=== PATIENT | female | born 1970 | race American Indian/Alaskan Native ===

== ENCOUNTER 2018-10-15 18:37 | Emergency (ER) | payer BC ==
[2018-10-15] MEDS ORDERED: IBUPROFEN PO ONE (19:37)
--- NOTE | 2018-10-15 20:27 | XRay Report ---
PROCEDURE: XR RIBS UNI W PA CHEST 3+V LT TECHNIQUE: PA view of the chest and 2 views of the bilateral ribs HISTORY: fall with rib pain bilaterally COMPARISONS: None . FINDINGS: There is no evidence for acute rib fracture or other bony pathologic abnormality in the bilateral rib s. On the chest film, the lungs are clear without evidence for infiltrate, effusion, or pneumothorax. Th e cardiomediastinal silhouette is normal . IMPRESSION: No acute abnormality in the bilateral ribs or chest. This document is electronically signed by Ashley Roach MD., Oct 15 2018 08:25:37 PM ET
--- NOTE | 2018-10-15 23:09 | Emergency Department Report ---
Blank Doc - Documentation Documentation: 48 y/o female comes in s/p fall off toilet and hit her left side of ribs this morning. LMP does not get.
[2018-10-15] MEDS ORDERED: ZOFRAN ODT PO ONE (23:43)
[2018-10-15] MEDS ORDERED: FLEXERIL PO ONE (23:43)
[2018-10-15] MEDS ORDERED: TORADOL IM ONE (23:43)
[2018-10-15] MEDS ORDERED: PERCOCET 5/325 PO ONE (23:43)
--- NOTE | 2018-10-15 23:55 | Emergency Department Report ---
ED Fall HPI - General Chief Complaint: Fall Stated Complaint: FALL INJURY/RIB PAIN Time Seen by Provider: 10/15/18 23:40 Source: patient Mode of arrival: Wheelchair - History of Present Illness Initial Comments: Patient is a 48-year-old Turk[place] female with a history of hypertension who presents to the ED, and the acute onset persistent severe left lateral chest wall and rib pain after she tripped and fell down, hitting her chest against the bathtub about 12 hours ago. Patient states that initially the pain was mild but subsequently the pain got worse in the last 6 hours. Patient states that the pain is worse with any movement, twisting, deep inhalation or palpation on the left lateral chest wall. Patient denies head or neck injury, back injury, abdominal pain, nausea, vomiting, dizziness, lightheadedness, syncope, headache, loss of consciousness or change in vision. MD Complaint: fall, other (left lateral chest wall and rib cage pain) -: Sudden, hour(s) (12) Time: 11:00 Fall From: standing, other (tripped and fell down hitting her left lateral chest wall against tub) When Fall Occurred: just prior to arrival, other (12 hours ago) Fall Witnessed: yes, by family Place Fall Occurred: home Loss of Consciousness: none Prolonged Down Time?: no Symptoms Prior to Fall: none, other (was sleep walking) Location: chest (left-lateral chest wall) Severity: severe Severity scale (0 -10): 7 Quality: sharp, stabbing Context: tripped/slipped Associated Symptoms: denies: headache, neck pain, numbness, weakness, chest paint, shortness of breath, abdominal pain, hematuria, unable to walk, lightheaded, vertigo, confusion - Related Data Previous Rx's Medication Instructions Recorded Last Taken Type Ketorolac [Toradol] 10 mg PO Q8H PRN #20 tablet 10/16/18 Unknown Rx tiZANidine [Zanaflex] 4 mg PO Q8H PRN #15 tablet 10/16/18 Unknown Rx traMADol [Ultram] 50 mg PO Q6HR PRN #15 tablet 10/16/18 Unknown Rx Allergies Allergy/AdvReac Type Severity Reaction Status Date / Time SULFA Allergy Itching Uncoded 10/15/18 18:41 ED Review of Systems ROS: Stated complaint: FALL INJURY/RIB PAIN Other details as noted in HPI Comment: All other systems reviewed and negative Constitutional: no symptoms reported, see HPI. denies: diaphoresis, fever, malaise, weakness Eyes: as per HPI. denies: eye pain, eye discharge, vision change ENT: as per HPI. denies: dental pain, hearing loss Respiratory: no symptoms reported, see HPI. denies: cough, orthopnea, shortness of breath, SOB with exertion, SOB at rest Cardiovascular: as per HPI, chest pain (left lateral chest wall, rib cage pain). denies: palpitations, dyspnea on exertion, edema, syncope, paroxysmal nocturnal dyspnea Endocrine: no symptoms reported, see HPI. denies: excessive sweating, flushing, intolerance to cold, intolerance to heat, increased hunger, increased urine, unexplained weight gain Gastrointestinal: as per HPI. denies: abdominal pain, nausea, vomiting, diarrhea, constipation, hematemesis Genitourinary: as per HPI. denies: urgency, dysuria, hematuria, abnormal menses Musculoskeletal: as per HPI. denies: back pain, joint swelling, arthralgia, myalgia Skin: as per HPI. denies: rash, lesions, change in color, change in hair/nails Neurological: as per HPI. denies: headache, weakness, numbness, paresthesias, confusion, abnormal gait, vertigo, other Psychiatric: as per HPI, anxiety Hematological/Lymphatic: as per HPI. denies: easy bleeding, easy bruising, swollen glands ED Past Medical Hx - Past Medical History Hx Hypertension: Yes Hx Diabetes: Yes - Social History Smoking Status: Current Every Day Smoker - Medications Home Medications: Home Medications Medication Instructions Recorded Confirmed Last Taken Type Ketorolac [Toradol] 10 mg PO Q8H PRN #20 tablet 10/16/18 Unknown Rx tiZANidine [Zanaflex] 4 mg PO Q8H PRN #15 tablet 10/16/18 Unknown Rx traMADol [Ultram] 50 mg PO Q6HR PRN #15 tablet 10/16/18 Unknown Rx ED Physical Exam - General Limitations: No Limitations General appearance: alert, in no apparent distress - Head Head exam: Present: atraumatic, normocephalic, normal inspection - Eye Eye exam: Present: normal appearance, PERRL, EOMI Pupils: Present: normal accommodation - ENT ENT exam: Present: normal exam, normal orophraynx, mucous membranes moist, TM's normal bilaterally, normal external ear exam - Neck Neck exam: Present: normal inspection, full ROM. Absent: tenderness, meningismus, lymphadenopathy, thyromegaly - Respiratory Respiratory exam: Present: normal lung sounds bilaterally, chest wall tenderness (Palpable left lateral chest wall and rib tenderness, no swelling). Absent: respiratory distress, wheezes, rales, rhonchi, stridor, accessory muscle use, decreased breath sounds, prolonged expiratory - Cardiovascular Cardiovascular Exam: Present: tachycardia, normal heart sounds - GI/Abdominal GI/Abdominal exam: Present: soft, normal bowel sounds. Absent: distended, tenderness, rebound, hyperactive bowel sounds, hypoactive bowel sounds, organomegaly - Extremities Exam Extremities exam: Present: normal inspection, full ROM, normal capillary refill - Back Exam Back exam: Present: normal inspection, full ROM. Absent: tenderness, CVA tenderness (R), CVA tenderness (L), muscle spasm, paraspinal tenderness, vertebral tenderness - Neurological Exam Neurological exam: Present: alert, oriented X3, CN II-XII intact, normal gait, reflexes normal - Psychiatric Psychiatric exam: Present: normal affect, anxious. Absent: normal mood, depressed, agitated, flat affect, manic, suicidal ideation - Skin Skin exam: Present: warm, dry, intact, normal color ED Course Vital Signs 10/15/18 10/16/18 20:01 00:04 Temperature 98.6 F Pulse Rate 121 H Respiratory 20 18 Rate Blood Pressure 118/68 [Right] O2 Sat by Pulse 98 Oximetry - Reevaluation(s) Reevaluation #1: 10/15/18 23:58 Patient is alert and oriented 3, tachycardic, anxious, crying due to pain during the physical exam but in no acute distress. Patient was treated for pain in the ED and the left ribs and chest x-rays shows no acute rib fractures or pneumothorax. On reevaluation, the patient's pain is well controlled with medications, tachycardia resolved prior to discharge. Patient discharged home on pain medications and muscle relaxants and advised to follow-up with her primary care physician in 3-5 days for reevaluation or return to the ED immediately if symptoms get worse. 10/16/18 00:00 ED Medical Decision Making - Radiology Data Radiology results: report reviewed, image reviewed No acute rib fractures, pneumothorax or infiltrates - Medical Decision Making Patient is alert and oriented 3, tachycardic, anxious, crying due to pain during the physical exam but in no acute distress. Patient was treated for pain in the ED and the left ribs and chest x-rays shows no acute rib fractures or pneumothorax. On reevaluation, the patient's pain is well controlled with medications, tachycardia resolved prior to discharge. Patient discharged home on pain medications and muscle relaxants and advised to follow-up with her primary care physician in 3-5 days for reevaluation or return to the ED immediately if symptoms get worse. - Differential Diagnosis left rib fractures, rib contusion, chest wall contusion, muscle strain Critical care attestation.: If time is entered above; I have spent that time in minutes in the direct care of this critically ill patient, excluding procedure time. ED Disposition Clinical Impression: Rib pain on left side Contusion of rib on left side Qualifiers: Encounter type: initial encounter Qualified Code(s): S20.212A - Contusion of left front wall of thorax, initial encounter Contusion of left chest wall Qualifiers: Encounter type: initial encounter Qualified Code(s): S20.212A - Contusion of left front wall of thorax, initial encounter Disposition: - TO HOME OR SELFCARE Is pt being admited?: No Does the pt Need Aspirin: No Condition: Stable Instructions: Chest Pain (ED), Contusion in Adults (ED), Thoracic Pain (ED) Additional Instructions: Take medications with food, drink plenty of fluids and follow up with your primary care physician in 3-5 days for reevaluation. Return to the emergency department immediately if his symptoms get worse. Prescriptions: Ketorolac [Toradol] 10 mg PO Q8H PRN #20 tablet PRN Reason: Pain traMADol [Ultram] 50 mg PO Q6HR PRN #15 tablet PRN Reason: Pain tiZANidine [Zanaflex] 4 mg PO Q8H PRN #15 tablet PRN Reason: Spasms Referrals: NNAMDI BARKER MD [Primary Care Provider] - 3-5 Days Time of Disposition: 00:06 Print Language: MARTINIQUAIS
[2018-10-16 02:26] VITALS: BP 131/86
== END 2018-10-16 02:26 | disposition home or self-care (01) ==
LOC: ED 18:37
DX: S20.212A Contusion of left front wall of thorax, initial encounter (principal); I10 Essential (primary) hypertension; E11.9 Type 2 diabetes mellitus without complications; F17.200 Nicotine dependence, unspecified, uncomplicated; Z88.2 Allergy status to sulfonamides; W01.198A Fall on same level from slipping, tripping and stumbling with subsequent striking against other object, initial encounter; Y93.89 Activity, other specified; Y92.099 Unspecified place in other non-institutional residence as the place of occurrence of the external cause; Y99.8 Other external cause status
CPT/HCPCS: 71101; 96372; 99283; J1885; Q0162

== ENCOUNTER 2020-12-05 14:18 | Emergency (ER) | payer BC ==
[2020-12-05 14:41] VITALS: BP 107/79
--- NOTE | 2020-12-06 09:15 | Electrocardiograph Report ---
[facility] Test Date: 2020-12-05 Test Time: 14:45:14 Pat Name: JANET AMES Department: Room: Gender: F [employer] Work[employer]: CARMELO : 1970 Requested By: TRENT VILLATORO III Order Number: [id number] Reading MD: Donald Pacheco Measurements Intervals [place] Rate: 93 P: 67 LA: 126 QRS: -10 QRSD: 84 T: 3 QT: 397 QTc: 495 Interpretive Statements Sinus rhythm Probable left atrial enlargement nonspecific st-t No previous ECG available for comparison Electronically Signed On 12-06-2020 9:14:48 EDT by Donald Pacheco
== END 2020-12-05 15:00 | disposition left against medical advice (07) ==
LOC: ED 14:18
DX: R07.89 Other chest pain (principal); Z53.21 Procedure and treatment not carried out due to patient leaving prior to being seen by health care provider
CPT/HCPCS: 93005